=== PATIENT | male | born 1980 | race Caucasian/White ===

== ENCOUNTER 2021-05-18 15:53 | Emergency (ER) | payer SELFPAY ==
[~2021-05-18] VITALS: Ht 190.5 cm; Wt 75.0 kg
[2021-05-18 16:05] VITALS: BP 139/84; Ht 190.5 cm; Wt 75.0 kg
[2021-05-18] MEDS ORDERED: CEPHALEXIN500 M1 PO (16:18)
[2021-05-18] MEDS ORDERED: CYCLOBENZAPRINE10 MG PO (16:18)
[2021-05-18] MEDS ORDERED: IBUPROFEN800 MG PO (16:18)
[2021-05-18] MEDS ORDERED: ACETAMINOPHEN500 M1 PO (16:18)
[2021-05-18] MEDS ORDERED: CLEOCIN HCL300 MG PO (16:18)
== END 2021-05-18 16:37 | disposition home or self-care (01) ==
LOC: D.ER 15:53
DX: K02.9 Dental caries, unspecified (principal); K04.7 Periapical abscess without sinus